=== PATIENT | male | born 1940 | race Caucasian/White ===

== ENCOUNTER 2016-08-26 16:43 | Emergency (ER) | payer OTHER ==
[~2016-08-26] VITALS: Ht 172.7 cm; Wt 90.7 kg
[2016-08-26 22:21] VITALS: BP 151/63
== END 2016-08-26 20:22 | disposition left against medical advice (07) ==
LOC: ED 16:43
DX: Z53.21 Procedure and treatment not carried out due to patient leaving prior to being seen by health care provider (principal)

== ENCOUNTER 2016-08-27 07:51 | Emergency (ER) | payer OTHER ==
[~2016-08-27] VITALS: Ht 165.1 cm; Wt 90.7 kg
[2016-08-27 07:54] VITALS: BP 139/82
[2016-08-27 08:55] LABS: BASOPHIL % 0.4 % (0-2); PLATELET COUNT 174 x10^3mcL (130-400)
[2016-08-27 08:58] LABS: RED CELL DISTRIBUTION WIDTH 15.1 % (11.5-14.5)
[2016-08-27 09:04] LABS: CALCIUM 8.5 mg/dL (8.5-10.1); CARBON DIOXIDE 26.5 mmol/L (21-32); CHLORIDE SERUM 105 mmol/L (98-107); CREATININE SERUM 1.4 mg/dL (0.7-1.3); GLUCOSE SERUM 112 mg/dL (74-106); POTASSIUM SERUM 3.9 mmol/L (3.5-5.1); SODIUM SERUM 140 mmol/L (136-145)
[2016-08-27 09:09] LABS: ALBUMIN 3.9 g/dL (3.4-5.0); ALKALINE PHOSPHATASE 61 U/L (46-116); ALT/SGPT 27 U/L (16-63); AST/SGOT 19 U/L (15-37); BILIRUBIN TOTAL 0.5 mg/dL (0.20-1.00); TOTAL PROTEIN, SERUM 6.9 g/dL (6.4-8.2)
[2016-08-30 10:15] LABS: RAPID PLASMA REAGIN Reactive (Non Reactive)
== END 2016-08-27 10:40 | disposition home or self-care (01) ==
LOC: ED 07:51
PROVIDERS: Emergency Medicine
DX: N48.89 Other specified disorders of penis (principal); I10 Essential (primary) hypertension
CPT/HCPCS: 86694; 87491; 87591; J0561

== ENCOUNTER 2017-04-20 09:58 | Emergency (ER) | payer OTHER ==
[2017-04-20 12:41] LABS: CALCIUM 8.8 mg/dL (8.5-10.1); CARBON DIOXIDE 27.8 mmol/L (21-32); CHLORIDE SERUM 106 mmol/L (98-107); CREATININE SERUM 1.1 mg/dL (0.7-1.3); GLUCOSE SERUM 110 mg/dL (74-106); POTASSIUM SERUM 3.8 mmol/L (3.5-5.1); SODIUM SERUM 140 mmol/L (136-145)
[2017-04-20 12:43] LABS: BASOPHIL % 0.3 % (0-2); PLATELET COUNT 159 x10^3mcL (130-400)
[2017-04-20 12:45] LABS: ALBUMIN 3.7 g/dL (3.4-5.0); ALKALINE PHOSPHATASE 56 U/L (46-116); ALT/SGPT 35 U/L (16-63); AMYLASE 49 U/L (25-115); AST/SGOT 32 U/L (15-37); BILIRUBIN TOTAL 0.53 mg/dL (0.20-1.00); LIPASE 162 IU/L (73-393); TOTAL PROTEIN, SERUM 6.8 g/dL (6.4-8.2)
[2017-04-20 12:47] LABS: RED CELL DISTRIBUTION WIDTH 14.8 % (11.5-14.5)
[2017-04-20 14:58] VITALS: BP 137/70
== END 2017-04-20 15:02 | disposition home or self-care (01) ==
LOC: ED 09:58
PROVIDERS: Emergency Medicine
DX: K29.00 Acute gastritis without bleeding (principal); I10 Essential (primary) hypertension
CPT/HCPCS: 83880; J2405; J3490; Q0092

== ENCOUNTER 2020-04-08 18:54 | Emergency (ER) | payer OTHER, SELFPAY ==
[~2020-04-08] VITALS: Ht 165.1 cm; Wt 83.9 kg
[2020-04-08 18:56] VITALS: BP 137/61; Ht 165.1 cm; Wt 83.9 kg
== END 2020-04-08 20:13 | disposition home or self-care (01) ==
LOC: ED 18:54
DX: U07.1 COVID-19 (principal); I10 Essential (primary) hypertension
CPT/HCPCS: U0003